=== PATIENT | male | born 1970 | race Caucasian/White ===

== ENCOUNTER 2017-01-07 17:40 | Emergency (ER) | payer SELFPAY ==
[~2017-01-07] VITALS: Ht 182.9 cm; Wt 101.0 kg
[~2017-01-07 17:40] MED LIST: AMLO5 PO; EPIP0.3I IM; LOVA20TA PO; MEDR4PAK3 PO; NORV2.5T11 PO
[2017-01-07 17:47] VITALS: PULSE 80; RESP 18; TEMP 98.1; O2SAT 95
[2017-01-07] MEDS ORDERED: BENA25TA3 PO (17:54)
[2017-01-07] MEDS ORDERED: SODIUM CHLOR 0.9% 1000 ML INJ 1,000 ML IV SCH (18:10)
[2017-01-07 18:15] VITALS: BP 159/101; PULSE 75; RESP 18; O2SAT 95
[2017-01-07] MEDS ORDERED: EPINEPHrine HCL (1:1000) 1 MG/ML VIAL IM ONE (18:15)
[2017-01-07] MEDS ORDERED: methylPREDNISolone SOD SUCC 125 MG/2 ML VIAL IVP ONE (18:15)
[2017-01-07] MEDS ORDERED: diphenhydrAMINE HCL 50 MG/ML VIAL IVP ONE (18:15)
[2017-01-07] MEDS ORDERED: SODIUM CHLORIDE 0.9% FLUSH 5 ML FLUSH IVF PRN (18:15)
[2017-01-07] MEDS ORDERED: FAMOTIDINE 20 MG/2 ML VIAL IV PUSH ONE (18:15)
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
[2017-01-07 18:24] VITALS: O2SAT 97
[2017-01-07 18:25] LABS: AUTOMATED NEUTROPHIL # 4.9 TH/MM3 (1.8-7.7); BASOPHIL # 0.1 TH/MM3 (0-0.2); EOSINOPHIL # 0.3 TH/MM3 (0-0.4); EOSINOPHIL % 2.5 % (0.0-4.0); HEMO FLAGS DIFF FINAL; LYMPH % 39.5 % (9.0-44.0); MEAN CELL VOLUME 83.1 FL (80.0-100.0); MEAN CORPUSCULAR HEMOGLOBIN 27.9 PG (27.0-34.0); MEAN CORPUSCULAR HGB CONC 33.5 % (32.0-36.0); MONO % 6.6 % (0.0-8.0); NEUT % 50.4 % (16.0-70.0); PLATELET COUNT 268 TH/MM3 (150-450)
[2017-01-07 18:33] LABS: POTASSIUM 3.7 MEQ/L (3.5-5.1)
[2017-01-07 18:36] LABS: BICARBONATE 24.9 MEQ/L (21.0-32.0)
[2017-01-07 19:31] VITALS: BP 160/74; PULSE 78; RESP 20; O2SAT 99
--- NOTE | 2017-01-07 19:57 | PD ---
Data Data Last Documented VS Vital Signs Date Time Temp Pulse Resp B/P Pulse Ox O2 Delivery O2 Flow Rate FiO2 01/07/17 21:22 98.5 80 20 144/75 01/07/17 19:31 99 Room Air Orders Basic Metabolic Panel (Bmp) (01/07/17 18:10) Complete Blood Count With Diff (01/07/17 18:10) Ecg Monitoring (01/07/17 18:10) Iv Access Insert/Monitor (01/07/17 18:10) Oximetry (01/07/17 18:10) Diphenhydramine Inj (Benadryl Inj) (01/07/17 18:15) Methylprednisolone So Succ Inj (Solumedr (01/07/17 18:15) Famotidine Inj (Pepcid Inj) (01/07/17 18:15) Sodium Chlor 0.9% 1000 Ml Inj (Ns 1000 M (01/07/17 18:10) Sodium Chloride 0.9% Flush (Ns Flush) (01/07/17 18:15) Epinephrine (1:1000) Inj (Adrenalin (1:1 (01/07/17 18:15) Labs Laboratory Tests Test 01/07/17 18:20 White Blood Count 10.0 TH/MM3 Red Blood Count 4.70 MIL/MM3 Hemoglobin 13.1 GM/DL Hematocrit 39.0 % Mean Corpuscular Volume 83.1 FL Mean Corpuscular Hemoglobin 27.9 PG Mean Corpuscular Hemoglobin 33.5 % Concent Red Cell Distribution Width 14.0 % Platelet Count 268 TH/MM3 Mean Platelet Volume 7.5 FL Neutrophils (%) (Auto) 50.4 % Lymphocytes (%) (Auto) 39.5 % Monocytes (%) (Auto) 6.6 % Eosinophils (%) (Auto) 2.5 % Basophils (%) (Auto) 1.0 % Neutrophils # (Auto) 4.9 TH/MM3 Lymphocytes # (Auto) 4.0 TH/MM3 Monocytes # (Auto) 0.7 TH/MM3 Eosinophils # (Auto) 0.3 TH/MM3 Basophils # (Auto) 0.1 TH/MM3 CBC Comment DIFF FINAL Differential Comment Sodium Level 142 MEQ/L Potassium Level 3.7 MEQ/L Chloride Level 108 MEQ/L Carbon Dioxide Level 24.9 MEQ/L Anion Gap 9 MEQ/L Blood Urea Nitrogen 22 MG/DL Creatinine 1.10 MG/DL Estimat Glomerular Filtration 72 ML/MIN Rate Random Glucose 115 MG/DL Calcium Level 8.2 MG/DL [facility] Medical Record Reviewed: Yes Supervised Visit with NURIA: No Narrative Course CBC & BMP Diagram 01/07/17 18:20 Refer to the outgoing provider's note. Patient was reassessed about 3 times over the course of about 2 hours. He demonstrated no worsening of swelling/edema of the posterior oropharynx. He did describe a vague sensation of blockage while he was exhaling through his nose however has had no difficulty breathing through the mouth. He has been able to drink water without difficulty. He states she's had similar episodes involving hands, testicles, feet and tongue however never the throat. We discussed the options including ICU admission which seems to be overutilization at this point as the patient has normal vital signs and is breathing without difficulty. Posterior oropharynx appears widely patent however minimal edema involving the uvula appears to be present however certainly nothing that would cause imminent respiratory compromise. The necessity of prednisone compliance discussed. Return precautions were discussed. The patient feels comfortable with the plan and is ready for discharge. He understands that he can return at any time tonight to do so without hesitation should he develop any respiratory distress. Diagnosis Primary Impression: Angioedema Qualified Code: T78.3XXD - Angioedema, subsequent encounter Referrals: Primary Care Physician 2 days Additional Instruction: You have a choice when it comes to health care, and we are glad that you chose [facility]. Hopefully, we have met your expectations on today's visit. You are welcome to return to [facility] at any time, as we are committed to meeting the health care needs of our community. Med/Other Pt SpecificInfo: Prescription(s) given Scripts Prednisone 20 Mg Tab40 Mg PO DAILY 4 Days Ref 0 Take 40 mg (2 tablets) daily for 5 days Prov:Jorge Parrish MD 01/07/17 Disposition: 01 DISCHARGE HOME Condition: Stable Jorge Parrish MD Jan 07, 2017 19:57
[2017-01-07 21:22] VITALS: BP 144/75; PULSE 80; RESP 20; TEMP 98.5
[2017-01-07] MEDS ORDERED: PRED20 PO (21:53)
[2017-01-07 22:44] VITALS: BP 138/75
== END 2017-01-07 22:51 | disposition home or self-care (01) ==
LOC: PHED 17:40
DX: T78.3XXA Angioneurotic edema, initial encounter (principal); F17.210 Nicotine dependence, cigarettes, uncomplicated
CPT/HCPCS: 80048; 85025; 96361; 96372; 96374; 96375; 99283; J0171; J1200; J2930; J7030

== ENCOUNTER 2017-03-14 18:07 | Emergency (ER) | payer SELFPAY ==
[~2017-03-14] VITALS: Ht 180.3 cm; Wt 94.0 kg
[~2017-03-14 18:07] MED LIST changes: -AMLO5 PO; +BENA25TA3 PO; -EPIP0.3I IM; -LOVA20TA PO; -MEDR4PAK3 PO; -NORV2.5T11 PO; +PRED20 PO
[2017-03-14 18:11] VITALS: BP 201/106; PULSE 84; RESP 18; TEMP 98.3; O2SAT 95
[2017-03-14] MEDS ORDERED: TETANUS/DIPHTHERIA TOXOID ADULT 0.5 ML VIAL IM ONE (18:30)
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
[2017-03-14 19:00] VITALS: BP 183/106
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
[2017-03-14] MEDS ORDERED: MOBI15TA PO (19:34)
[2017-03-14] MEDS ORDERED: ULTR50TA5 PO (19:34)
== END 2017-03-14 19:50 | disposition home or self-care (01) ==
LOC: PHEFT 18:07
DX: E78.00 Pure hypercholesterolemia, unspecified (principal); I10 Essential (primary) hypertension; F17.200 Nicotine dependence, unspecified, uncomplicated; V19.9XXA Pedal cyclist (driver) (passenger) injured in unspecified traffic accident, initial encounter; M25.532 Pain in left wrist; M79.642 Pain in left hand
CPT/HCPCS: 70450; 71010; 73030; 73110; 73130; 73564; 90471; 90714; 99284; L0150